=== PATIENT | male | born 1995 | race Caucasian/White ===

== ENCOUNTER 2021-02-01 18:00 | Emergency (ER) | payer SELFPAY ==
[~2021-02-01] VITALS: Ht 167.6 cm; Wt 60.0 kg
[2021-02-01 20:43] LABS: BASOPHILS % 0.4 % (0.0-2.0); EOSINOPHILS % 0.3 % (0.0-5.0); HEMATOCRIT. 43.1 % (42.0-52.0); HEMOGLOBIN. 13.8 g/dL (14.0-18.0); LYMPHOCYTES % 12.1 % (20.0-50.0); MEAN CORPUSCULAR HEMOGLOBIN 26.6 pg (28.0-32.0); MEAN CORPUSCULAR VOLUME 82.9 fL (80.0-94.0); MEAN PLATELET VOLUME 7.8 fl (7.4-10.4); MONOCYTES % 10.9 % (2.0-8.0); NEUTROPHILS % 76.3 % (40.0-76.0); PLATELET 365 x1000/uL (130-400); RED CELL DISTRIBUTION WIDTH 14.2 % (11.6-14.6)
[2021-02-01 20:51] LABS: CHLORIDE 106 mEq/L (98-107)
[2021-02-01 20:55] LABS: ETHANOL BLOOD < 10 mg/dL
[2021-02-01 23:43] VITALS: BP 120/75
== END 2021-02-01 23:56 | disposition short-term general hospital (02) ==
LOC: ER 18:00
DX: I62.00 Nontraumatic subdural hemorrhage, unspecified (principal); S02.0XXA Fracture of vault of skull, initial encounter for closed fracture; G93.40 Encephalopathy, unspecified; I49.9 Cardiac arrhythmia, unspecified; X58.XXXA Exposure to other specified factors, initial encounter; Y93.89 Activity, other specified; Y92.488 Other paved roadways as the place of occurrence of the external cause; Z59.00 Homelessness unspecified; Z20.822 Contact with and (suspected) exposure to COVID-19
CPT/HCPCS: 36415; 70486; 71045; 72170; 80053; 80320; 85025; 87426; 93005; 99291; A4315; G0480